=== PATIENT | female | born 1985 | race Caucasian/White ===

== ENCOUNTER 2021-01-04 10:45 | Emergency (ER) | payer OTHER, SELFPAY ==
[2021-01-04 10:58] VITALS: BP 111/69; PULSE 77; RESP 18; TEMP 36.7; O2SAT 97; BMI 27.8
[2021-01-04 11:08] VITALS: BMI 27.8
--- NOTE | 2021-01-04 11:09 | XR_ITS ---
PROCEDURE: XR WRIST RT MIN 3V CLINICAL INDICATION: injury COMPARISON: No exams were available for comparison FINDINGS: No fracture or dislocation. No lytic or blastic change. There is normal mineralization. The joint spaces are well-preserved. No significant degenerative/arthritic changes. No erosive changes evident. Other findings:None. IMPRESSION: No acute findings. Dictated by: Reza Houston MD 01/04/2021 12:17 Reza Houston MD in [place] 01/04/2021 12:17
--- NOTE | 2021-01-04 11:09 | XR_ITS ---
PROCEDURE: XR HAND RT MIN 3V CLINICAL INDICATION: injury COMPARISON: No exams were available for comparison FINDINGS: No fracture or dislocation. No lytic or blastic change. There is normal mineralization. The joint spaces are well-preserved. No significant degenerative/arthritic changes. No erosive changes evident. Other findings:None. IMPRESSION: No acute findings. Dictated by: Reza Houston MD 01/04/2021 12:17 Reza Houston MD in [place] 01/04/2021 12:17
--- NOTE | 2021-01-04 11:10 | XR_ITS ---
PROCEDURE: XR FOREARM RT 2V CLINICAL INDICATION: injury COMPARISON: No exams were available for comparison FINDINGS: No fracture or dislocation. No lytic or blastic change. There is normal mineralization. The joint spaces are well-preserved. No significant degenerative/arthritic changes. No erosive changes evident. Other findings:None. IMPRESSION: No acute findings. Dictated by: Reza Houston MD 01/04/2021 12:18 Reza Houston MD in [place] 01/04/2021 12:18
[2021-01-04 11:11] VITALS: BP 110/73; PULSE 74; RESP 16; TEMP 36.5; O2SAT 99; BMI 27.8
--- NOTE | 2021-01-04 12:27 | HMH.EDUTC ---
[facility] [place] Clinical Impression: Crushing injury of right forearm Qualifiers: Encounter type: initial encounter Qualified Code(s): S57.81XA - Crushing injury of right forearm, initial encounter Right wrist sprain Qualifiers: Encounter type: initial encounter Qualified Code(s): S63.501A - Unspecified sprain of right wrist, initial encounter Sprain of right hand Qualifiers: Encounter type: initial encounter Qualified Code(s): S63.91XA - Sprain of unspecified part of right wrist and hand, initial encounter Disposition: Home, Self-Care Condition on Discharge: Good Instructions: Wrist Sprain, DI for Wrist Sprain, How to Take Care of Your Splint, DI for Crush Injury, DI for Hand Injury Additional Instructions: Rest the extremity, apply ice for 15 minutes as tolerated three or four times per day, Elevate the extremity as tolerated while you are resting. Take ibuprofen for pain. I sent in a prescription to your pharmacy. Follow up with Dr. Burton (orthopedics). Sometimes there can be fractures that don't show up well on the first set of x-rays. I put in a referral but you need to call his office and schedule an appointment. I recommend that you be on light duty and do not be lifting with your right arm until you are evaluated by orthopedic. Follow up with your regular doctor. GO TO THE ER FOR ANY WORSENING SYMPTOMS Wear the wrist splint if it helps you be more comfortable. It will help you hold your wrist in a neutral position which should help to take pressure off the nerves that are making your fingers tingle and feel numb. If your hand or wrist swells please take it off or at least loosen it. Prescriptions: Ibuprofen [Ibuprofen 600mg Tablet] 600 mg PO Q6HP PRN #30 tab PRN Reason: Mild Pain Transmission Status: Received by [id number] Referrals: Marii Harden [Primary Care Provider] - Byron Burton MD [Staff Physician] - Forms: Work/School Release Time of Disposition: 12:43 Medical Decision Making - Medical Records Medical records reviewed: No: I reviewed the patient's medical records. - Mark Inquiry Pt receiving controlled substance: No Vital Signs: 01/04/21 10:58 01/04/21 11:11 01/04/21 12:45 Temperature 98.1 F 97.7 F 97.7 F Temperature Source Oral Oral Oral Pulse Rate 74 Pulse Rate [Left Radial] 77 74 Respiratory Rate 18 16 16 Blood Pressure 110/73 Blood Pressure [Left Arm] 111/69 110/73 Blood Pressure Mean [Left Arm] 83 85 Blood Pressure Source Automatic Cuff Blood Pressure Source [Left Arm] Automatic Cuff Automatic Cuff Blood Pressure Position Sitting Blood Pressure Position [Left Arm] Sitting Sitting 02 Sat by Pulse Oximetry 97 99 Oxygen Delivery Method Room Air Room Air Room Air - Radiology Data #1 Image(s): Hand Image Reviewed: Yes I reviewed the patient's radiology image, Yes I have reviewed radiologist's interpretation Preliminary Findings: No Fracture Seen PROCEDURE: XR HAND RT MIN 3V CLINICAL INDICATION: injury COMPARISON: No exams were available for comparison FINDINGS: No fracture or dislocation. No lytic or blastic change. There is normal mineralization. The joint spaces are well-preserved. No significant degenerative/arthritic changes. No erosive changes evident. Other findings:None. IMPRESSION: No acute findings. Dictated by: Reza Houston MD 01/04/2021 12:17 Reza Houston MD in [place] 01/04/2021 12:17 #2 Image(s): Wrist Image Reviewed: Yes I reviewed the patient's radiology image, Yes I have reviewed radiologist's interpretation Preliminary Findings: No Fracture Seen PROCEDURE: XR WRIST RT MIN 3V CLINICAL INDICATION: injury COMPARISON: No exams were available for comparison FINDINGS: No fracture or dislocation. No lytic or blastic change. There is normal mineralization. The joint spaces are well-preserved. No significant degenerative/arthritic changes. No erosive changes evide
[2021-01-04 12:45] VITALS: BP 110/73; PULSE 74; RESP 16; TEMP 36.5; O2SAT 99
== END 2021-01-04 12:47 | disposition home or self-care (01) ==
PROVIDERS: Emergency Provider Nurse Practitioner Family; PCP Nurse Practitioner Family
DX: S57.81XA Crushing injury of right forearm, initial encounter (principal); S63.501A Unspecified sprain of right wrist, initial encounter; W23.1XXA Caught, crushed, jammed, or pinched between stationary objects, initial encounter; Y92.69 Other specified industrial and construction area as the place of occurrence of the external cause; Y99.0 Civilian activity done for income or pay
CPT/HCPCS: 73090; 73110; 73130; 99202; G0463